=== PATIENT | male | born 1985 | race Caucasian/White ===

== ENCOUNTER 2019-05-22 10:17 | Day surgery (SDC) | payer OTHER ==
[2019-05-22] MEDS ORDERED: BUPIVACAINE HCL 0.25% MPF 30 ML SOL INFIL ONE (11:25)
[2019-05-22] MEDS: TRIAMCINOLONE ACETONIDE 40 MG/ML SUS ONE ×2 (11:39→11:44)
[2019-05-22 11:54] VITALS: BP 128/73; PULSE 53; RESP 18; TEMP 96.8; O2SAT 99
== END 2019-05-22 12:15 | disposition home or self-care (01) | DRG 554 ==
LOC: SURG 10:17
PROVIDERS: ATTEND Nurse Anesthetist, Certified Registered
DX: M12.9 Arthropathy, unspecified (principal)
CPT/HCPCS: J3300